=== PATIENT | female | born 1960 | race Caucasian/White ===

== ENCOUNTER 2016-11-21 17:35 | Emergency (ER) | payer OTHER ==
[2016-11-21 17:43] VITALS: RESP 18
--- NOTE | 2016-11-21 17:59 | CPEKG ---
Heart Rate: 107 RR Interval: 561 P-R Interval: 132 QRSD Interval: 84 QT Interval: 332 QTC Interval: 443 P Haugan: 44 QRS Haugan: -44 T Wave Haugan: 52 EKG Severity - ABNORMAL ECG - EKG Impression: SINUS TACHYCARDIA EKG Impression: LEFT ATRIAL ABNORMALITY EKG Impression: LEFT AXIS DEVIATION Electronically Signed By: Jennifer Joseph 21-Nov-2016 22:07:42
[2016-11-21] MEDS ORDERED: ASPIRIN 81 MG CHEWABLE TAB PO ONE (18:01)
[2016-11-21] MEDS ORDERED: NS 500 ML IV ONE (18:01)
[2016-11-21 18:38] LABS: % IMMATURE GRANULYOCYTES 0.2 % (0.0-1.1); ABSOLUTE IMMATURE GRANULOCYTES 0.02 10^3/uL (0.00-0.10); ADD DIFF? NO; ADD MORPH? NO; ADD SCAN? NO; ATYPICAL LYMPHOCYTE FLAG 10 (0-99); FRAGMENT RBC FLAG 0 (0-99); HEMATOCRIT 42.2 % (38.0-47.0); HEMOGLOBIN 14.3 g/dL (12.6-16.3); LEFT SHIFT FLG 0 (0-99); LIPEMIA HEMOLYSIS FLAG 90 (0-99); MEAN CELL HEMOGLOBIN 33.1 pg (27.9-34.1); MEAN CELL HEMOGLOBIN CONCENTR. 33.9 g/dL (32.4-36.7); MEAN CELL VOLUME 97.7 fL (81.5-99.8); MEAN PLATELET VOLUME 9.9 fL (8.7-11.7); PLATELET CLUMPS FLAG 0 (0-99); PLATELET COUNT 318 10^3/uL (150-400); RED BLOOD CELL COUNT 4.32 10^6/uL (4.18-5.33); RED CELL DISTRIBUTION WIDTH 12.3 % (11.5-15.2)
[2016-11-21 18:47] LABS: INR 0.95 (0.83-1.16); PROTIME(PATIENT) 12.6 SEC (12.0-15.0)
[2016-11-21 18:48] LABS: ANION GAP 14 mEq/L (8-16); APTT 24.6 SEC (23.0-38.0); CALCIUM 9.7 mg/dL (8.5-10.4); CARBON DIOXIDE 24 mEq/l (22-31); CHLORIDE 103 mEq/L (97-110); CREATININE 0.9 mg/dL (0.6-1.0); GLOMERULAR FILTRATION RATE > 60; GLUCOSE 118 mg/dL (70-100); POTASSIUM 3.9 mEq/L (3.5-5.2); SODIUM 141 mEq/L (134-144)
[2016-11-21 19:01] LABS: CREATINE KINASE-MB FRACTION 0.87 ng/mL (0.00-3.19); TROPONIN I < 0.012 ng/mL (0.000-0.034)
[2016-11-21] MEDS ORDERED: CYCLOBENZAPRINE 10 MG TAB PO ONE (19:39)
[2016-11-21] MEDS ORDERED: KETOROLAC 30 MG/1 ML SDV IVP ONE (19:39)
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
[2016-11-21 20:07] VITALS: BP 147/95; PULSE 79; TEMP 98.2; O2SAT 94
== END 2016-11-21 20:06 | disposition home or self-care (01) ==
DX: M79.621 Pain in right upper arm (principal); E86.9 Volume depletion, unspecified; F17.200 Nicotine dependence, unspecified, uncomplicated; Z85.3 Personal history of malignant neoplasm of breast
CPT/HCPCS: 96374; J1885

== ENCOUNTER 2016-11-22 17:16 | Emergency (ER) | payer OTHER ==
[2016-11-22 17:36] VITALS: BP 178/85; RESP 16; TEMP 98.4
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
[2016-11-22] MEDS ORDERED: ACYCLOVIR 400 MG TAB PO ONE (18:05)
[2016-11-22] MEDS ORDERED: ACYCLOVIR 400 MG PREPACK#4 BTL TAKEHOME ONE (18:05)
[2016-11-22] MEDS ORDERED: predniSONE 20 MG TAB PO ONE (18:05)
[2016-11-22] MEDS ORDERED: HYDROCOD/APAP 5/325 PREPACK#6 BTL TAKEHOME ONE (18:05)
[2016-11-22 18:54] VITALS: PULSE 63; O2SAT 96
== END 2016-11-22 18:52 | disposition home or self-care (01) ==
DX: B02.9 Zoster without complications (principal); F17.200 Nicotine dependence, unspecified, uncomplicated